=== PATIENT | female | born 1995 | race Caucasian/White ===

== ENCOUNTER 2018-01-22 07:03 | Emergency (ER) | payer OTHER ==
[2018-01-22 07:14] VITALS: BP 135/79
--- NOTE | 2018-01-22 07:26 | UC ---
Throat Pain/Nasal Johnny HPI - HPI Summary HPI Summary: cough x 7 days cough is dry , hacking , + nasal congestion , pnd , sore throat, no fever, no chills, - History of Current Complaint Chief Complaint: UCRespiratory Stated Complaint: COUGH,NASAL CONGESTION Time Seen by Provider: 01/22/18 07:19 Hx Obtained From: Patient Hx Last Menstrual Period: 01/12/18 ?: No Onset/Duration: Gradual Onset, Lasting Days - 7, Still Present Severity: Moderate Pain Intensity: 3 Cough: Nonproductive Associated Signs & Symptoms: Positive: Nasal Discharge. Negative: Hoarseness, Sinus Discomfort, Fever, Vomiting, Rash - Allergies/Home Medications Allergies/Adverse Reactions: Allergies Allergy/AdvReac Type Severity Reaction Status Date / Time nickel Allergy Rash Verified 01/22/18 07:12 Home Medications: Home Medications NK [No Home Medications Reported] 01/22/18 [History Confirmed 01/22/18] PMH/Surg Hx/FS Hx/Imm Hx Previously Healthy: Yes - Surgical History Surgical History: Yes Surgery Procedure, Year, and Place: left lazy eye repair - Family History Known Family History: Positive: None Negative: Diabetes - Social History Alcohol Use: Weekly Alcohol Amount: 4 Substance Use Type: None Substance Use Comment - Amount & Last Used: 03/09/16 Smoking Status (MU): Light Every Day Tobacco Smoker Type: Cigarettes Amount Used/How Often: weekly Household Exposure Type: Cigarettes Review of Systems Constitutional: Negative Skin: Negative Eyes: Negative ENT: Sore Throat, Nasal Discharge Respiratory: Cough Cardiovascular: Negative Gastrointestinal: Negative Is Patient Immunocompromised?: No All Other Systems Reviewed And Are Negative: Yes Physical Exam Triage Information Reviewed: Yes Appearance: Well-Appearing, No Pain Distress, Well-Nourished Vital Signs: Initial Vital Signs Temp 97.4 F 01/22/18 07:10 Pulse 83 01/22/18 07:10 Resp 18 01/22/18 07:10 BP 135/79 01/22/18 07:10 Pulse Ox 100 01/22/18 07:10 Vital Signs Reviewed: Yes Eye Exam: Normal Eyes: Positive: Conjunctiva Clear ENT: Positive: Normal ENT inspection, Hearing grossly normal, Pharyngeal erythema, Nasal congestion, Nasal drainage, TMs normal Neck exam: Normal Neck: Positive: Supple, Nontender, No Lymphadenopathy Respiratory: Positive: Chest non-tender, Lungs clear, Normal breath sounds Cardiovascular: Positive: RRR, No Murmur, Pulses Normal Skin Exam: Normal Throat Pain/Nasal Course/Dx - Differential Dx/Diagnosis Provider Diagnoses: URI Discharge - Sign-Out/Discharge Documenting (check all that apply): Discharge - Discharge Plan Condition: Stable Disposition: HOME Patient Education Materials: Upper Respiratory Infection (ED) Forms: *Work Release Referrals: Arianne Morrissey [Primary Care Provider] - If Needed - Billing Disposition and Condition Condition: STABLE Disposition: HOME
== END 2018-01-22 07:33 | disposition home or self-care (01) ==
LOC: UCCORT 07:03
DX: J06.9 Acute upper respiratory infection, unspecified (principal); F17.210 Nicotine dependence, cigarettes, uncomplicated
CPT/HCPCS: 99211; G0463

== ENCOUNTER 2018-07-14 16:15 | Emergency (ER) | payer OTHER ==
[2018-07-14 16:35] VITALS: BP 137/87
--- NOTE | 2018-07-14 16:54 | UC ---
Abdominal Pain Female HPI - HPI Summary HPI Summary: 23-year-old woman comes to clinic today with a chief complaint of right lower abdominal pain. This started 4 hours ago. She has some chills. She is nauseous. She tried eating and it made the pain worse. Pain gets worse with walking and movement. Pain is about a 6 out of 10. No dysuria no abnormal vaginal discharge patient is not concerned of an STI. Last menstrual period was approximately 3 weeks ago. No complaint of diarrhea or constipation. No prior abdominal surgeries. - History of Current Complaint Chief Complaint: UCAbdominalPain Stated Complaint: LOWER RIGHT SIDE ABD PAIN Time Seen by Provider: 07/14/18 16:41 Hx Last Menstrual Period: 06/21/18 Pain Intensity: 7 Allergies/Adverse Reactions: Allergies Allergy/AdvReac Type Severity Reaction Status Date / Time nickel Allergy Rash Verified 07/14/18 16:32 PMH/Surg Hx/FS Hx/Imm Hx Previously Healthy: Yes - Surgical History Surgical History: Yes Surgery Procedure, Year, and Place: left lazy eye repair - Family History Known Family History: Positive: None, Other - MOTHER OVARIAN CANCER Negative: Diabetes - Social History Alcohol Use: Occasionally Alcohol Amount: 4 Substance Use Type: None Substance Use Comment - Amount & Last Used: 03/09/16 Smoking Status (MU): Light Every Day Tobacco Smoker Type: Cigarettes Amount Used/How Often: weekly Household Exposure Type: Cigarettes Review of Systems Constitutional: Chills Skin: Negative Eyes: Negative ENT: Negative Respiratory: Negative Cardiovascular: Negative Gastrointestinal: Abdominal Pain, Nausea, Other - SEE HPI Motor: Negative Neurovascular: Negative Musculoskeletal: Negative Neurological: Negative Psychological: Negative Is Patient Immunocompromised?: No All Other Systems Reviewed And Are Negative: Yes Physical Exam Triage Information Reviewed: Yes Appearance: Well-Appearing, Well-Nourished, Pain Distress - MILD Vital Signs: Initial Vital Signs Temp 97.9 F 07/14/18 16:29 Pulse 72 07/14/18 16:29 Resp 16 07/14/18 16:29 BP 137/87 07/14/18 16:29 Pulse Ox 100 07/14/18 16:29 Vital Signs Reviewed: Yes Eye Exam: Normal Eyes: Positive: Conjunctiva Clear Neck exam: Normal Neck: Positive: Supple Respiratory: Positive: Lungs clear, Normal breath sounds, No respiratory distress Cardiovascular: Positive: RRR Abdomen Description: Positive: Other: - Heel strike and obturator sign are negative. Patient is tender in the right lower quadrant palpation. She is not tender in the left lower quadrant or in the upper abdomen. Bowel Sounds: Positive: Present Musculoskeletal Exam: Normal Musculoskeletal: Positive: Strength Intact, ROM Intact Neurological Exam: Normal Neurological: Positive: Alert, Muscle Tone Normal Psychological Exam: Normal Psychological: Positive: Age Appropriate Behavior Skin Exam: Normal Abd Pain Female Course/Dx - Course Course Of Treatment: And discussed the different possibilities of right lower quadrant abdominal pain to include appendicitis. I recommended the patient go to the emergency department and she agreed. - Differential Dx/Diagnosis Provider Diagnoses: RIGHT LOWER QUADRANT ABDOMINAL PAIN Discharge - Sign-Out/Discharge Documenting (check all that apply): Patient Departure All imaging exams completed and their final reports reviewed: No Studies - Discharge Plan Condition: Stable Disposition: HOME-RECOMMEND TO ED Patient Education Materials: Acute Abdominal Pain (ED) Referrals: Anita Sen MD [Primary Care Provider] - Additional Instructions: GO DIRECTLY TO THE EMERGENCY DEPARTMENT FOR FURTHER EVALUATION. - Billing Disposition and Condition Condition: STABLE Disposition: Home-Recommend to ED
== END 2018-07-14 16:58 | disposition home health service (06) ==
LOC: UCCORT 16:15
DX: R10.31 Right lower quadrant pain (principal)
CPT/HCPCS: 99212; G0463